=== PATIENT | male | born 1940 | race Caucasian/White ===

== ENCOUNTER 2018-02-27 18:23 | Emergency (ER) | payer MEDICARE, OTHER ==
[~2018-02-27] VITALS: Ht 177.8 cm; Wt 133.8 kg
[~2018-02-27 18:23] MED LIST: CLOP75 PO; GLIP5 PO; LORA10ER PO; METO25ER PO; RANI150 PO; [UNRECOGNIZED DRUG - REMARK]
[2018-02-27] MEDS ORDERED: POTA8 (18:37)
[2018-02-27] MEDS ORDERED: DOXA1 (18:37)
[2018-02-27] MEDS ORDERED: FURO100EL (18:37)
== END 2018-02-27 20:11 | disposition home or self-care (01) ==
LOC: ER 18:23
DX: S41.112A Laceration without foreign body of left upper arm, initial encounter (principal); S51.812A Laceration without foreign body of left forearm, initial encounter; W01.198A Fall on same level from slipping, tripping and stumbling with subsequent striking against other object, initial encounter; Z91.030 Bee allergy status; Z88.8 Allergy status to other drugs, medicaments and biological substances; Z79.899 Other long term (current) drug therapy; I10 Essential (primary) hypertension; E11.9 Type 2 diabetes mellitus without complications
CPT/HCPCS: 12002; 90471; 90714; 99282

== ENCOUNTER → 2018-05-10 | Outpatient (CLI) | payer MEDICARE, OTHER ==
[~2018-05-10] MED LIST changes: +ACET500 PO; +AMLO5 PO; +ASCO500 PO; +ATOR20 PO; +DOXA1; +DOXA4 PO; +FURO100EL; +FURO20 PO; +LOSA50 PO; +METO100ER PO; +POTA8; +SENN187 PO; +WARF2.5 PO; +WARF5 PO
[2018-05-10 15:37] LABS: Creatinine, Urine Random 77.8 mg/dL (27.00-270.00); Protein, Urine Random 12.7 mg/dL (0.0-11.9)
== END | disposition home or self-care (01) ==
LOC: LAB SHORT 12:42 → LAB 12:42
PROVIDERS: Internal Medicine
DX: N18.3 Chronic kidney disease, stage 3 (moderate) (principal)
CPT/HCPCS: 82570; 84156

== ENCOUNTER 2019-10-30 16:29 | Observation (INO) | payer MEDICARE, OTHER ==
[~2019-10-30] VITALS: Ht 177.8 cm; Wt 132.5 kg
[~2019-10-30 16:29] MED LIST changes: -WARF2.5 PO
[2019-10-30 17:03] LABS: BASOPHILS ABSOLUTE AUTO 0.01 K/mm3 (0.00-0.23); BASOPHILS PERCENT AUTO 0 % (0-2); EOSINOPHILS PERCENT AUTO 0 % (0-6); Hematocrit 40.8 % (37.0-53.0); Hemoglobin 13.1 g/dL (13.5-17.5); IMMATURE GRAN ABSOLUTE AUTO 0.04 K/mm3 (0.00-0.10); IMMATURE GRAN PERCENT AUTO 1 % (0-1); LYMPHOCYTES ABSOLUTE AUTO 0.71 K/mm3 (0.84-5.20); LYMPHOCYTES PERCENT AUTO 8 % (21-46); MONOCYTES ABSOLUTE AUTO 0.56 K/mm3 (0.16-1.47); MONOCYTES PERCENT AUTO 7 % (4-13); Mean Corpuscular HGB 32.3 pg (26.0-34.0); Mean Corpuscular HGB Conc 32.1 g/dL (31.5-36.5); Mean Corpuscular Volume 101 fL (80-100); Mean Platelet Volume 10.5 fL (9.1-12.4); NEUTROPHILS PERCENT AUTO 84 % (41-73); Platelet Count 202 K/mm3 (150-400); RDW Standard Deviation 48.4 fL (35.1-46.3); Red Blood Cell Count 4.05 M/mm3 (4.30-5.90); White Blood Cell Count 8.42 K/mm3 (4.00-11.30)
[2019-10-30 17:19] LABS: International Normalized Ratio 2.18; Prothrombin Time Results 22.3 Sec (9.7-11.5)
[2019-10-30 17:26] LABS: Albumin, Blood 3.2 g/dL (3.4-5.0); Albumin/Globulin Ratio 0.7 (0.8-1.8); Bilirubin, Total 0.7 mg/dL (0.1-1.0); Bun/Creatinine Ratio 17.3 (12.0-20.0); Calcium, Blood 9.7 mg/dL (8.5-10.1); Creatinine, Blood 1.97 mg/dL (0.60-1.20); Globulin, Blood 4.5 g/dL (2.2-4.0); Potassium, Blood 3.3 mmol/L (3.5-5.5); Total Protein, Blood 7.7 g/dL (6.4-8.2)
[2019-10-30] MEDS ORDERED: TOCO1000 (21:30)
--- NOTE | 2019-10-31 00:24 | NUR ---
79 YR OLD MALE ADMITTED TO FLOOR FROM THE ED WITH DX OF GI BLEED. WAS NPO, BUT MD ORDERED CLEAR LIQUIDS. NO NOTED EMESIS AT THIS TIME. ALERT AND ORINTED X 4. ORIENTED TO CALL LIGHT AND AGREES TO USE IT IF NEEDED.
[2019-10-31 02:20] LABS: Creatinine, Blood 1.74 mg/dL (0.60-1.20); Potassium, Blood 4.6 mmol/L (3.5-5.5)
--- NOTE | 2019-10-31 03:21 | NUR ---
HAD BEEN RESTING QUIETLY WITH FEW INTERRUPTIONS, AWAKE AT THIS TIME. STATED HE WAS DOING FINE. NO NOTED EMESIS. AFFECT SMILED.
[2019-10-31 03:51] LABS: Hematocrit 38.9 % (37.0-53.0); Hemoglobin 12.3 g/dL (13.5-17.5)
[2019-10-31 04:13] LABS: International Normalized Ratio 2.31; Prothrombin Time Results 23.6 Sec (9.7-11.5)
--- NOTE | 2019-10-31 06:16 | NUR ---
PT NOT VOIDING MUCH THIS SHIFT, BLADDER SCANNED NOTED 44 ML. ENCOURAGED TO DRINK MORE FLUIDS AND TO USE THE URINAL. STATED RATHER TERSELY, I WILL WHEN I NEED TO (USING THE URINAL).
[2019-10-31 09:32] LABS: Hematocrit 41.2 % (37.0-53.0); Hemoglobin 12.6 g/dL (13.5-17.5)
[2019-10-31] MEDS ORDERED: AZIT500 PO (10:33)
[2019-10-31] MEDS ORDERED: ALBU90OI INH (10:33)
[2019-10-31] MEDS ORDERED: Prednisone10 MG PO (10:34)
[2019-10-31] MEDS ORDERED: GLIP2.5ER PO (10:35)
[2019-10-31] MEDS ORDERED: BENZ100A PO (10:35)
--- NOTE | 2019-10-31 10:59 | NUR ---
DISCHARGE INSTRUCTIONS REVIEWED WITH PT. IV DC'D INTACT. APPT MADE WITH DR RODRIGUEZ FOR POSSIBLE UPPER ENDOSCOPY, [facility] TO CALL PT WITH A FOLLOW UP APPOINTMENT. RX FAXED TO [facility]. PT AWAITING RIDE HOME AT THIS TIME.
[2019-10-31 11:15] LABS: Adenovirus Not Detected (NOT DETECT); Bordetella pertussis Not Detected (NOT DETECT); Chlamydophila pneumoniae Not Detected (NOT DETECT); Coronavirus 229E Not Detected (NOT DETECT); Coronavirus HKU1 Not Detected (NOT DETECT); Coronavirus NL63 Not Detected (NOT DETECT); Coronavirus OC43 Not Detected (NOT DETECT); Human Metapneumovirus Not Detected (NOT DETECT); Human Rhinovirus/Enterovirus Not Detected (NOT DETECT); Influenza A Not Detected (NOT DETECT); Influenza A/2009-H1 Not Detected (NOT DETECT); Influenza A/H1 Not Detected (NOT DETECT); Influenza A/H3 Not Detected (NOT DETECT); Influenza B Not Detected (NOT DETECT); Mycoplasma pneumoniae Not Detected (NOT DETECT); Parainfluenza Virus 1 Not Detected (NOT DETECT); Parainfluenza Virus 2 Not Detected (NOT DETECT); Parainfluenza Virus 3 Not Detected (NOT DETECT); Parainfluenza Virus 4 Not Detected (NOT DETECT); Respiratory Syncytial Virus Detected (NOT DETECT)
--- NOTE | 2019-10-31 12:39 | NUR ---
PT DISCHARGED HOME WITH SPOUSE AT 1240.
== END 2019-10-31 12:40 | disposition home or self-care (01) ==
LOC: ER 16:29 → MEDS 16:30 → ENPENDDIS 10-31 10:17 → MEDS 10-31 12:40
PROVIDERS: Physician Assistant; ADMIT Internal Medicine
DX: K92.0 Hematemesis (principal); D68.32 Hemorrhagic disorder due to extrinsic circulating anticoagulants; T45.515A Adverse effect of anticoagulants, initial encounter; I48.91 Unspecified atrial fibrillation; J20.9 Acute bronchitis, unspecified; I12.9 Hypertensive chronic kidney disease with stage 1 through stage 4 chronic kidney disease, or unspecified chronic kidney disease; E11.22 Type 2 diabetes mellitus with diabetic chronic kidney disease; N18.3 Chronic kidney disease, stage 3 (moderate); Z88.8 Allergy status to other drugs, medicaments and biological substances; Z79.899 Other long term (current) drug therapy; Z91.038 Other insect allergy status; Z87.891 Personal history of nicotine dependence
CPT/HCPCS: 0099U; 36415; 71046; 80048; 80053; 82272; 82947; 83690; 84484; 85014; 85018; 85025; 85610; 85730; 86850; 86900; 86901; 93005; 93010; 96365; 96366; 96375; 99285-25; J2405; J2930; J3480; J7030

== ENCOUNTER 2020-02-03 16:21 | Inpatient (IN) | payer OTHER, MEDICARE ==
[~2020-02-03] VITALS: Ht 177.8 cm; Wt 140.2 kg
[~2020-02-03 16:21] MED LIST changes: +ALBU90OI INH; +AZIT500 PO; +BENZ100A PO; +GLIP2.5ER PO; +METO100 PO; -METO100ER PO; +Prednisone10 MG PO; +TOCO1000
[2020-02-03 16:45] LABS: BASOPHILS ABSOLUTE AUTO 0.03 K/mm3 (0.00-0.23); BASOPHILS PERCENT AUTO 0 % (0-2); EOSINOPHILS PERCENT AUTO 0 % (0-6); Hematocrit 33.1 % (37.0-53.0); Hemoglobin 10.1 g/dL (13.5-17.5); IMMATURE GRAN ABSOLUTE AUTO 0.22 K/mm3 (0.00-0.10); IMMATURE GRAN PERCENT AUTO 1 % (0-1); LYMPHOCYTES ABSOLUTE AUTO 0.52 K/mm3 (0.84-5.20); LYMPHOCYTES PERCENT AUTO 3 % (21-46); MONOCYTES ABSOLUTE AUTO 1.17 K/mm3 (0.16-1.47); MONOCYTES PERCENT AUTO 7 % (4-13); Mean Corpuscular HGB 30.4 pg (26.0-34.0); Mean Corpuscular HGB Conc 30.5 g/dL (31.5-36.5); Mean Corpuscular Volume 100 fL (80-100); Mean Platelet Volume 9.4 fL (9.1-12.4); NEUTROPHILS ABSOLUTE AUTO 15.85 K/mm3 (1.96-9.15); NEUTROPHILS PERCENT AUTO 89 % (41-73); Platelet Count 308 K/mm3 (150-400); RDW Coefficient Variation 13.4 % (11.7-14.2); RDW Standard Deviation 49.6 fL (35.1-46.3); Red Blood Cell Count 3.32 M/mm3 (4.30-5.90); White Blood Cell Count 17.79 K/mm3 (4.00-11.30)
[2020-02-03] MEDS ORDERED: ELIQUIS5 M2 PO (16:59)
[2020-02-03 17:01] LABS: International Normalized Ratio 1.28; Prothrombin Time Results 13.5 Sec (9.7-11.5)
[2020-02-03 17:08] LABS: Albumin, Blood 2.5 g/dL (3.4-5.0); Albumin/Globulin Ratio 0.6 (0.8-1.8); Bilirubin, Total 0.9 mg/dL (0.1-1.0); Bun/Creatinine Ratio 19.6 (12.0-20.0); Calcium, Blood 9.1 mg/dL (8.5-10.1); Creatinine, Blood 2.65 mg/dL (0.60-1.20); Globulin, Blood 4.5 g/dL (2.2-4.0); Potassium, Blood 4.9 mmol/L (3.5-5.5)
[2020-02-03] MEDS ORDERED: Cardura8 MG PO (17:21)
[2020-02-03] MEDS ORDERED: POTA10T PO (17:22)
[2020-02-03] MEDS ORDERED: GLIP5 PO (18:08)
[2020-02-03 18:34] LABS: Source, Urine Catheter
[2020-02-03 18:44] LABS: Bilirubin, Urine Neg (Neg); Blood, Urine 4+ (Neg); Glucose Qualitative, Urine Neg (Neg); Ketones, Urine Neg (Neg); Leukocyte Esterase, Urine 3+ (Neg); Nitrite, Urine Neg (Neg); Protein, Urine 2+ (Neg); Specific Gravity, Urine 1.015 (1.003-1.022); Urobilinogen, Urine NORM (Normal)
[2020-02-03 18:59] LABS: Appearance, Urine Cloudy (Clear); Color, Urine Yellow (P-Yellow)
[2020-02-03 19:00] LABS: Bacteria Mod /hpf; Red Blood Cells, Urine 0-2 /hpf (0-2); Squamous Epithelial Cells Not Seen /hpf (Few); White Blood Cells, Urine TNTC /hpf (0-5)
[2020-02-04 00:01] LABS: Hematocrit 32.4 % (37.0-53.0); Hemoglobin 10.1 g/dL (13.5-17.5); IMMATURE RETIC FRACTION 12.9 % (2.3-16.0); RETICULOCYTE COUNT PERCENT 1.69 % (0.50-2.50)
[2020-02-04 00:18] LABS: Percent Saturation 4.7 % (20.0-50.0)
[2020-02-04 00:21] LABS: Free Thyroxine 1.03 ng/dL (0.70-1.60)
[2020-02-04 00:24] LABS: Thyroid Stimulating Hormone 1.65 uIU/mL (0.360-4.800)
--- NOTE | 2020-02-04 05:17 | NUR ---
SHIFT SUMMARY PT SLEEPING IN ROOM COMFORTABLY AT THIS TIME. NO ACUTE CHANGES IN STATUS SINCE ARRIVAL. PT HAS SLEPT WELL SINCE ARRIVAL, WAKES EASILY TO VERBAL, BUT IS DROWSY WHILE AWAKE. RESP EVEN UNLABORED ON RA W/ SATS >92%. PT REPORTS SOME OCCASIONAL PAIN TO BUTTOCKS, WOUND NOTED AND PHOTOGRAPHED FOR CHART. PROTONIX GTT INFUSING IN PIV ALONG W/ NS. ATTEMPTED TO ESTABLISH SECONDARY IV ACCESS D/T MEDS NOT BEING ABLE TO INTERACT. UNAB LE TO ESTABLISH SECONDARY IV, AFTER MULTIPLE ATTEMPTS, POWERGLIDE ATTEMPED. UNABLE. WILL PASS ON TO DAY SHIFT RN ABOUT POSSIBLE NEED FOR PICC LINE FOR SECONDARY LINE. DENIES CP OR SOB. DENIED OTHER NEEDS. CALL LIGHT IN REACH.
[2020-02-04 05:32] LABS: Hematocrit 31.1 % (37.0-53.0); Hemoglobin 9.8 g/dL (13.5-17.5); Mean Corpuscular HGB 30.8 pg (26.0-34.0); Mean Corpuscular HGB Conc 31.5 g/dL (31.5-36.5); Mean Corpuscular Volume 98 fL (80-100); Mean Platelet Volume 9.6 fL (9.1-12.4); Platelet Count 265 K/mm3 (150-400); RDW Coefficient Variation 13.7 % (11.7-14.2); RDW Standard Deviation 49.9 fL (35.1-46.3); Red Blood Cell Count 3.18 M/mm3 (4.30-5.90); White Blood Cell Count 17.13 K/mm3 (4.00-11.30)
[2020-02-04 05:56] LABS: Albumin, Blood 2.8 g/dL (3.4-5.0); Albumin/Globulin Ratio 0.7 (0.8-1.8); Bilirubin, Total 0.9 mg/dL (0.1-1.0); Bun/Creatinine Ratio 17.8 (12.0-20.0); Calcium, Blood 9.1 mg/dL (8.5-10.1); Creatinine, Blood 3.03 mg/dL (0.60-1.20); Globulin, Blood 4.2 g/dL (2.2-4.0)
--- NOTE | 2020-02-04 10:05 | NUR ---
Echocardiogram completed.
[2020-02-04 12:23] LABS: Hematocrit 28.8 % (37.0-53.0); Hemoglobin 8.9 g/dL (13.5-17.5)
[2020-02-04 12:38] LABS: Source, Urine Catheter
[2020-02-04 12:48] LABS: Bilirubin, Urine Neg (Neg); Blood, Urine 5+ (Neg); Glucose Qualitative, Urine Neg (Neg); Ketones, Urine Neg (Neg); Leukocyte Esterase, Urine 3+ (Neg); Nitrite, Urine Neg (Neg); Protein, Urine 3+ (Neg); Specific Gravity, Urine 1.015 (1.003-1.022); Urobilinogen, Urine NORM (Normal)
[2020-02-04 12:55] LABS: Appearance, Urine Turbid (Clear); Color, Urine Yellow (P-Yellow)
[2020-02-04 12:57] LABS: White Blood Cells, Urine TNTC /hpf (0-5)
[2020-02-04 12:58] LABS: Bacteria Many /hpf; Squamous Epithelial Cells Rare /hpf (Few)
[2020-02-04 17:47] LABS: Hematocrit 32.7 % (37.0-53.0); Hemoglobin 10.2 g/dL (13.5-17.5)
--- NOTE | 2020-02-04 17:50 | NUR ---
SHIFT SUMMARY PT ALERT AND ORIENTED. PT DROWSY MOST OF SHIFT, BUT AWAKES EASILY. VS STABLE. HR AFIB 90'S. BP STABLE. PT HAS BEEN AFEBRILE THIS AFTERNOON. IV SALINE LOCKED. PT REPOSITIONING HIMSELF IN BED AND WITH HELP NEEDED. MELARA CATHETER PLACED THIS SHIFT DUE TO RETENTION. PT HAD 2 SMALL BM THIS SHIFT THAT WAS INCONTINENT. STOOL WAS BROWN. PT TOLERATING CLEAR LIQUIDS. MEPILEX TO COCCYX IN PLACE. WILL CONTINUE TO MONITOR AND REPORT TO ONCOMING RN. CALL LIGHT IN REACH.
[2020-02-05 04:32] LABS: Hematocrit 26.4 % (37.0-53.0); Hemoglobin 8.3 g/dL (13.5-17.5); Mean Corpuscular HGB 31.1 pg (26.0-34.0); Mean Corpuscular HGB Conc 31.4 g/dL (31.5-36.5); Mean Corpuscular Volume 99 fL (80-100); Platelet Count 222 K/mm3 (150-400); RDW Coefficient Variation 13.9 % (11.7-14.2); RDW Standard Deviation 49.9 fL (35.1-46.3); Red Blood Cell Count 2.67 M/mm3 (4.30-5.90)
[2020-02-05 04:52] LABS: Albumin, Blood 2.1 g/dL (3.4-5.0); Albumin/Globulin Ratio 0.5 (0.8-1.8); Bilirubin, Total 0.5 mg/dL (0.1-1.0); Bun/Creatinine Ratio 18.8 (12.0-20.0); Calcium, Blood 8.3 mg/dL (8.5-10.1); Creatinine, Blood 3.2 mg/dL (0.60-1.20); Potassium, Blood 4.5 mmol/L (3.5-5.5); Total Protein, Blood 6.1 g/dL (6.4-8.2)
[2020-02-05 05:35] LABS: BAND PERCENT MAN 12 % (0-8); BASOPHILS ABSOLUTE MAN 0.13 K/mm3 (0.00-0.23); BASOPHILS PERCENT MAN 1 % (0-2); EOSINOPHILS PERCENT MAN 0 % (0-6); LYMPHOCYTES PERCENT MAN 3 % (21-46); MONOCYTES ABSOLUTE MAN 0.27 K/mm3 (0.16-1.47); MONOCYTES PERCENT MAN 2 % (4-13); NEUTROPHILS ABSOLUTE MAN 12.69 K/mm3 (1.96-9.15); SEG NEUTROPHILS PERCENT MAN 82 % (41-73); TOTAL CELLS COUNTED 100
--- NOTE | 2020-02-05 06:14 | NUR ---
SHIFT SUMMARY PT A&O; LETHARGIC; COMPLIANT W/ CARE; PO FLUIDS BROUGHT PRN; TYLENOL GIVEN 1X FOR TEMP OFF 99; VSS; AFIB NOTED ON TELE; HR STEADILY INCREASED T/O SHIFT; O2 SATS >93 ON RA; PT INCONTINENT; ATTENDS IN PLACE; MIPILEX CHANGED AND WOUND ASSESSED; MELARA DRAINING OZZIE URINE; PYURIA & ODOR NOTED; BLE 2+ EDEMA W/ REDNESS AND SMALL BLISTERS NOTED; CALL LIGHT IN REACH; BED IN LOWEST POSITION; WILL CONTINUE TO MONITOR CLOSELY UNTIL HAND OFF TO DAY SHIFT RN.
--- NOTE | 2020-02-05 14:52 | NUR ---
UPDATE PT ALERT AND ORIENTED. VS STABLE. O2 SATS REMAIN ABOVE 90% ON RA. HR AFIB 90-100'S. PT DENIES ANY PAIN. DR. BLACKMON IN WITH PLANS TO TRANSFER TO MEDICAL FLOOR WITH NO TELEMETRY. PT TAKEN UP BY BED.
--- NOTE | 2020-02-05 18:17 | NUR ---
RECEIVED TO ROOM 341 AT 1520 IN THE BED. HE IS SLEEPY BUT AROUSABLE. HIS RESPIRATIONS ARE SLIGHTLY LABORED. HE IS A VERY LARGE MAN WITH EDEMA. IV ANTIBIOTIC INFUSING ON ARRIVAL FINISHED. HE HAS WORKED WITH OT SINCE ARRIVAL. HIS DINNER IS LATE. HE IS CURRENTLY TALKING TO HIS FAMILY ON THE PHONE. HE WAS UP IN THE CHAIR IN PCU EARLIER TODAY. SARITHA TAFOYA. HE IS FRUSTRATED WITH HOW HARD ALL HIS ADL'S ARE BUT HAS A GOOD ATTITUDE.
[2020-02-06 04:57] LABS: BASOPHILS ABSOLUTE AUTO 0.01 K/mm3 (0.00-0.23); BASOPHILS PERCENT AUTO 0 % (0-2); EOSINOPHILS ABSOLUTE AUTO 0.14 K/mm3 (0.00-0.68); EOSINOPHILS PERCENT AUTO 1 % (0-6); Hematocrit 26.6 % (37.0-53.0); Hemoglobin 8.2 g/dL (13.5-17.5); IMMATURE GRAN ABSOLUTE AUTO 0.06 K/mm3 (0.00-0.10); IMMATURE GRAN PERCENT AUTO 1 % (0-1); LYMPHOCYTES ABSOLUTE AUTO 0.84 K/mm3 (0.84-5.20); LYMPHOCYTES PERCENT AUTO 7 % (21-46); MONOCYTES ABSOLUTE AUTO 0.95 K/mm3 (0.16-1.47); MONOCYTES PERCENT AUTO 8 % (4-13); Mean Corpuscular HGB 30.8 pg (26.0-34.0); Mean Corpuscular HGB Conc 30.8 g/dL (31.5-36.5); Mean Corpuscular Volume 100 fL (80-100); Mean Platelet Volume 10.1 fL (9.1-12.4); NEUTROPHILS ABSOLUTE AUTO 9.98 K/mm3 (1.96-9.15); NEUTROPHILS PERCENT AUTO 83 % (41-73); Platelet Count 213 K/mm3 (150-400); RDW Standard Deviation 51.5 fL (35.1-46.3); Red Blood Cell Count 2.66 M/mm3 (4.30-5.90); White Blood Cell Count 11.98 K/mm3 (4.00-11.30)
[2020-02-06 05:14] LABS: Albumin, Blood 2.1 g/dL (3.4-5.0); Albumin/Globulin Ratio 0.5 (0.8-1.8); Bilirubin, Total 0.5 mg/dL (0.1-1.0); Bun/Creatinine Ratio 20.7 (12.0-20.0); Calcium, Blood 8.2 mg/dL (8.5-10.1); Potassium, Blood 4.2 mmol/L (3.5-5.5); Total Protein, Blood 6.1 g/dL (6.4-8.2)
--- NOTE | 2020-02-06 05:28 | NUR ---
SHIFT SUMMARY AOX3, CONFUSED @TIMES & WILL STATE "I DON'T KNOW" WHEN UNABLE TO ANSWER QUESTIONS. FOLLOWS DIRECTIONS. HAS BUE SHAKES/TREMORS & STATES THEY ARE NEW. DENIES PAIN, N/V OR DYSPNEA. MELARA IS PATENT & PT HAD 1300ML OUTPUT, BLADDER SCAN SHOWED 263ML IN BLADDER. ABD DISTENDED W/ACTIVE BT. TOLERATING DIET. CBG @HS WAS 139. DRESSING ON RIGHT BUTTOCKS WOUND WAS CHANGED. CALL LIGHT IN REACH. WCTM.
--- NOTE | 2020-02-06 13:46 | NUR ---
HE IS BACK IN BED NOW WITH EACH LEG ELEVATED ON 2 PILLOWS. WE STARTED THAT THIS AM. SCD'S WERE REMOVED FOR A FEW HRS D/T MAKING BIG CREASES IN THE PITTING EDEMA BUT NOW ARE BACK ON FOR AWHILE. HE IS MORE ALERT TODAY AND HAS VERY PLEASANT AND APPROPRIATE. HE SAT UP IN A RECLINER CHAIR FOR A COUPLE OF HRS. HE HAD A LG FORMED BM ON THE BSC. THE R BUTTOCK FOAM DRESSING STAYED CD&I. HE IS DIURISING WELL THROUGH MELARA CATHETER. NO COMPLAINTS.
--- NOTE | 2020-02-06 13:50 | NUR ---
KRISTINE HE ASKED FOR HIS WALLET FROM HIS [employer]ONGINGS BAG. HE AND I CONFIRMED TOGETHER THAT HE HAD 160.00 DOLLARS IN 1 SECTION AND 8 DOLLARS IN ANOTHER. HE ARRANGED FOR HIS TO PICK IT UP OUT FRONT. SHE HAS PICKED IT UP. I TOOK IT DOWN TO HER AT THE E.R. ENTRANCE.
--- NOTE | 2020-02-06 16:33 | NUR ---
Per oswaldo, I met with Mr. Ramsay to offer information regarding advanced care planning. He was not interested, but took an advanced directive packet regardless. I will remain available.
--- NOTE | 2020-02-06 18:01 | NUR ---
HE IS IN THE CHAIR FOR THE 2ND TIME TODAY. HE TRANSFERS WITH 2 ASSIST. HE HAS A DIFFICULT TIME GETTING UP TO A DANGLE BUT THEN STANDS WELL AND TAKES STEPS WELL. HE HAD 3 LARGE UNFORMED AND LIQUID DARK BROWN STOOLS TODAY. R BUTTOCK PATCH REMAINED CLEAN. GOOD DIURESIS. WHEN IN BED HE HAS HAD EACH LEG UP ON 2 PILLOWS. HE HAS LESS EDEMA NOW THAN THIS MORNING. SCD'S ARE USED INTERMITTENTLY D/T SEVERE EDEMA. HE IS VERY PLEASANT, A&O X3. HE HAD ME DELIVER HIS WALLET TO HIS DOWNSTAIRS TODAY AT THE DOOR. NO FEVER THOUGH HE SWEATED A LOT EARLY THIS AM.
[2020-02-07 04:51] LABS: BASOPHILS ABSOLUTE AUTO 0.01 K/mm3 (0.00-0.23); BASOPHILS PERCENT AUTO 0 % (0-2); EOSINOPHILS ABSOLUTE AUTO 0.25 K/mm3 (0.00-0.68); EOSINOPHILS PERCENT AUTO 2 % (0-6); Hemoglobin 8.2 g/dL (13.5-17.5); IMMATURE GRAN ABSOLUTE AUTO 0.06 K/mm3 (0.00-0.10); IMMATURE GRAN PERCENT AUTO 1 % (0-1); LYMPHOCYTES ABSOLUTE AUTO 0.84 K/mm3 (0.84-5.20); LYMPHOCYTES PERCENT AUTO 8 % (21-46); MONOCYTES ABSOLUTE AUTO 0.97 K/mm3 (0.16-1.47); MONOCYTES PERCENT AUTO 9 % (4-13); Mean Corpuscular HGB 30.7 pg (26.0-34.0); Mean Corpuscular HGB Conc 31.5 g/dL (31.5-36.5); Mean Platelet Volume 10.1 fL (9.1-12.4); NEUTROPHILS ABSOLUTE AUTO 8.64 K/mm3 (1.96-9.15); NEUTROPHILS PERCENT AUTO 80 % (41-73); Platelet Count 236 K/mm3 (150-400); RDW Standard Deviation 49.8 fL (35.1-46.3); Red Blood Cell Count 2.67 M/mm3 (4.30-5.90); White Blood Cell Count 10.77 K/mm3 (4.00-11.30)
[2020-02-07 04:52] LABS: Mean Corpuscular Volume 97 fL (80-100)
[2020-02-07 05:13] LABS: Albumin, Blood 2.3 g/dL (3.4-5.0); Albumin/Globulin Ratio 0.6 (0.8-1.8); Bilirubin, Total 0.6 mg/dL (0.1-1.0); Bun/Creatinine Ratio 21.7 (12.0-20.0); Calcium, Blood 8.3 mg/dL (8.5-10.1); Creatinine, Blood 2.77 mg/dL (0.60-1.20); Globulin, Blood 3.7 g/dL (2.2-4.0); Potassium, Blood 3.8 mmol/L (3.5-5.5)
--- NOTE | 2020-02-07 05:19 | NUR ---
SHIFT SUMMARY NO ACUTE CHANGES THIS SHIFT. AOX3. VSS. DENIES PAIN, NAUSEA OR DYSPNEA. BLE EDEMA APPEARS BETTER TONIGHT THEN PREVIOUS NIGHT +1-2, ELEVATED BLE ON PILLOWS WHILE IN BED. SCDS ON INTERMITTENTLY, TAKEN OFF FOR COMFORT PER PT REQUEST. BANDAGE ON WOUND CHANGE THIS AM. SARITHA PATENT & DRAINING. CALL LIGHT IN REACH.
--- NOTE | 2020-02-07 15:44 | NUR ---
PATIENT HAS HAD AN UNEVENTFUL DAY. PULSE AND RR ELEVATED; PATIENT ALSO HAD A TEMP OF 99.0 WITHIN THE PAST 24HRS SO WAS NOT ABLE TO DISCHARGE TO A SNF TODAY PLANNED. DENIES PAIN AND DISCOMFORT. NO ACUTE CHANGES TO REPORT OF AT THIS TIME.
--- NOTE | 2020-02-08 05:21 | NUR ---
SHIFT SUMMARY: 79 Y/O OBESE MALE RESTED COMFORTABLY ALL SHIFT; MELARA DRAINING CLEAR YELLOW FLUID; +4 PITTING EDEMA TO LOWER EXTREMITIES NOTED WHILE ELEVATED ON TWO PILLOWS; DENIES PAIN OR NAUSEA; BED LOW POSITION WITH CALL LIGHT AT SIDE.
--- NOTE | 2020-02-08 13:56 | NUR ---
PATIENT HAS BEEN SLEEPING THE MAJORITY OF THE DAY. BLOOD CULTURES ORDERED AND WERE DRAWN ON PATIENT. PATIENT REMAINS TACHYCARDIC BUT ASYMPTOMMATIC; ALL OTHER VITALS STABLE AND WNL. DENIES PAIN AND DISCOMFORT. PATIENT ASLEEP IN ROOM AT THIS TIME. WILL CONTINUE TO MONITOR AND PROVIDE CARE NEEDED.
[2020-02-09 05:19] LABS: Hematocrit 28.3 % (37.0-53.0); Hemoglobin 8.7 g/dL (13.5-17.5); Mean Corpuscular HGB 30.4 pg (26.0-34.0); Mean Corpuscular HGB Conc 30.7 g/dL (31.5-36.5); Mean Corpuscular Volume 99 fL (80-100); Mean Platelet Volume 9.7 fL (9.1-12.4); Platelet Count 299 K/mm3 (150-400); RDW Coefficient Variation 14.2 % (11.7-14.2); RDW Standard Deviation 52.3 fL (35.1-46.3); Red Blood Cell Count 2.86 M/mm3 (4.30-5.90)
[2020-02-09 05:32] LABS: Anion Gap 9 mmol/L (6-16); Blood Urea Nitrogen 53 mg/dL (8-24); Bun/Creatinine Ratio 22.9 (12.0-20.0); CO2, Blood 23 mmol/L (21-32); Calcium, Blood 8.5 mg/dL (8.5-10.1); Chloride, Blood 108 mmol/L (98-108); Creatinine, Blood 2.31 mg/dL (0.60-1.20); Glomerular Filtration Rate 29 (60-); Glucose, Blood 149 mg/dL (70-99); Phosphorus, Blood 3.2 mg/dL (2.5-4.9); Potassium, Blood 3.9 mmol/L (3.5-5.5); Sodium, Blood 140 mmol/L (136-145)
--- NOTE | 2020-02-09 06:30 | NUR ---
SHIFT SUMMARY: 79 Y/O OBESE MALE RESTED COMFORTABLY ALL SHIFT; PT INCONTINENT LARGE AMOUNT URINE AND STOOL X 1 THIS SHIFT; CLEANSED UP AND FRESH LINEN AND GOWN APPLIED; DENIES PAIN OR NAUSEA; ALERT AND ORIENTED X 4; HAPPY AND COOPERATIVE; BED LOW POSITION WITH CALL LIGHT AT SIDE.
--- NOTE | 2020-02-09 08:06 | NUR ---
STRAIGHT CATH ORDER PT DID NOT VOID OVERNIGHT. AT SHIFT CHANGE PT HAD INCONT STOOL AND POSSIBLY SOME URINE. PT UNABLE TO VOID ANYMORE. BLADDER SCAN REVEALED 553. DR. JEFFREY NOTIFIED & ONE TIME STRAIGHT CATH ORDER GIVE.
[2020-02-09] MEDS ORDERED: TUMS500 MG PO (10:21)
[2020-02-09] MEDS ORDERED: CIPR500 PO (10:21)
[2020-02-09] MEDS ORDERED: FURO40 PO (10:23)
[2020-02-09] MEDS ORDERED: VISBIOME 112.51 EACH PO (10:24)
[2020-02-09] MEDS ORDERED: PANT20 PO (10:25)
[2020-02-09] MEDS ORDERED: TAMS.4ER PO (10:27)
--- NOTE | 2020-02-09 11:47 | NUR ---
ATTEMPTED TO CALL REPORT. UV NURSE TO CALL THIS RN BACK.
--- NOTE | 2020-02-09 12:37 | NUR ---
PT DISCHARGED. PT DISCHARGED AT 1235. NO ACUTE CHANGES IN ASSESSMENT AT THIS TIME. REPORT CALLED TO NURSE, ZACK AT [facility]. THIS RN RELAYED TO BLADDER SCAN PT AFTER ARRIVAL. PT CHOSE TO EAT LUNCH INSTEAD OF HAVING HIS BLADDER SCANNED. STATING "HE DOESN'T HAVE TO GO RIGHT NOW". PT WHEELED OUT BY [employer]. BELONGINGS SENT WITH PT.
== END 2020-02-09 12:37 | DRG 872 ==
LOC: ER 16:21 → PCU 20:57 → MEDS 20:57 → ICUE 21:00 → ICUW 21:13 → PCU 21:19 → MEDS 02-05 15:17 → ENPENDDIS 02-09 10:00 → MEDS 02-09 12:37
PROVIDERS: Internal Medicine; Physician Assistant; ADMIT Internal Medicine
DX: A41.81 Sepsis due to Enterococcus (principal); E87.2 Acidosis; N39.0 Urinary tract infection, site not specified; Z68.41 Body mass index [BMI] 40.0-44.9, adult; K92.0 Hematemesis; Z79.01 Long term (current) use of anticoagulants; N18.3 Chronic kidney disease, stage 3 (moderate); I25.10 Atherosclerotic heart disease of native coronary artery without angina pectoris; Z87.891 Personal history of nicotine dependence; E11.22 Type 2 diabetes mellitus with diabetic chronic kidney disease; I12.9 Hypertensive chronic kidney disease with stage 1 through stage 4 chronic kidney disease, or unspecified chronic kidney disease; I35.2 Nonrheumatic aortic (valve) stenosis with insufficiency; M19.90 Unspecified osteoarthritis, unspecified site; E88.09 Other disorders of plasma-protein metabolism, not elsewhere classified; Z85.05 Personal history of malignant neoplasm of liver; E66.01 Morbid (severe) obesity due to excess calories; Z86.711 Personal history of pulmonary embolism; L89.152 Pressure ulcer of sacral region, stage 2; K21.9 Gastro-esophageal reflux disease without esophagitis; I48.91 Unspecified atrial fibrillation; N40.1 Benign prostatic hyperplasia with lower urinary tract symptoms; N13.9 Obstructive and reflux uropathy, unspecified; L72.0 Epidermal cyst; Z79.84 Long term (current) use of oral hypoglycemic drugs; I50.9 Heart failure, unspecified
CPT/HCPCS: 36415; 51702; 71045; 80053; 80069; 81001; 82272; 82728; 82947; 83540; 83550; 83605; 83690; 83880; 84439; 84443; 84484; 85014; 85018; 85025; 85027; 85045; 85610; 86850; 86900; 86901; 87040; 87077; 87086; 87186; 93005; 93010; 93306; 93970; 96365; 96375; 97110; 97163; 97166; 97530; 97535; 99285-25; A9270; A9270-GY; C1751; C9113; J0696; J0881; J1940; J2405; J7030; J7050; P9046

== ENCOUNTER → 2020-07-27 | Outpatient (CLI) | payer MEDICARE, OTHER ==
[~2020-07-27] MED LIST changes: +CIPR500 PO; +Cardura8 MG PO; +ELIQUIS5 M2 PO; +FURO40 PO; +PANT20 PO; +POTA10T PO; +TAMS.4ER PO; +TUMS500 MG PO; +VISBIOME 112.51 EACH PO
== END | disposition home or self-care (01) ==
LOC: LAB SHORT 14:23 → OLS 14:23 → LAB FUT 04-29 14:45
DX: N18.4 Chronic kidney disease, stage 4 (severe) (principal)
CPT/HCPCS: 82570; 84156

== ENCOUNTER 2021-07-13 15:21 | Emergency (ER) | payer MEDICARE, OTHER ==
[~2021-07-13] VITALS: Ht 175.3 cm; Wt 133.8 kg
== END 2021-07-13 17:39 | disposition home or self-care (01) ==
LOC: ER 15:21
DX: S01.81XA Laceration without foreign body of other part of head, initial encounter (principal); S03.2XXA Dislocation of tooth, initial encounter; Z23 Encounter for immunization; I48.91 Unspecified atrial fibrillation; I12.9 Hypertensive chronic kidney disease with stage 1 through stage 4 chronic kidney disease, or unspecified chronic kidney disease; N18.30 Chronic kidney disease, stage 3 unspecified; E11.9 Type 2 diabetes mellitus without complications; I25.10 Atherosclerotic heart disease of native coronary artery without angina pectoris; Z91.030 Bee allergy status; Z88.8 Allergy status to other drugs, medicaments and biological substances; Z79.899 Other long term (current) drug therapy; Z79.84 Long term (current) use of oral hypoglycemic drugs; Z79.01 Long term (current) use of anticoagulants; W18.30XA Fall on same level, unspecified, initial encounter
CPT/HCPCS: 12013; 70450; 72125; 90471; 90714; 99283-25

== ENCOUNTER → 2021-12-05 | Outpatient (CLI) | payer MEDICARE, OTHER ==
[2021-12-05 11:55] LABS: Source, Urine Clean Catch
[2021-12-05 21:50] LABS: Bilirubin, Urine Neg (Neg); Blood, Urine 3+ (Neg); Glucose Qualitative, Urine Neg (Neg); Ketones, Urine Neg (Neg); Leukocyte Esterase, Urine Neg (Neg); Nitrite, Urine Neg (Neg); Protein, Urine 1+ (Neg); Urobilinogen, Urine NORM (Normal)
[2021-12-05 21:52] LABS: Appearance, Urine Hazy (Clear); Bacteria Few /hpf; Color, Urine Yellow (P-Yellow); Squamous Epithelial Cells Mod /hpf (Few); Uric Acid Crystals Mod /hpf; White Blood Cells, Urine Not Seen /hpf (0-5)
[2021-12-05 22:15] LABS: Creatinine, Urine Random 86.8 mg/dL (27.00-270.00); Protein, Urine Random 21.5 mg/dL (0.0-11.9); Protein/Creat Ratio, Ur Random 0.2
== END ==
LOC: LAB SHORT 11:47
PROVIDERS: Internal Medicine Nephrology
DX: N18.4 Chronic kidney disease, stage 4 (severe) (principal)
CPT/HCPCS: 81001; 82570; 84156

== ENCOUNTER 2022-04-15 08:16 | Day surgery (SDC) | payer MEDICARE, OTHER ==
[~2022-04-15] VITALS: Ht 175.3 cm; Wt 140.0 kg
[2022-04-15] MEDS ORDERED: LOSA50 PO (08:44)
[2022-04-15] MEDS ORDERED: CELE100 PO (08:44)
[2022-04-15] MEDS ORDERED: POTA10T PO (08:45)
--- NOTE | 2022-04-15 15:25 | NUR ---
PT UP AND DRESSED WITH ASSISTANCE FROM . DISCHARGE REVIEWED WITH PT AND , BOTH VERBALIZE UNDERSTANDING OF INSTRUCTIONS. SALINE LOCK REMOVED WITH CATHETER INTACT. TR BAND REMOVED AND CLOTH DOT PLACED. ARM BOARD ON AND PT INSTRUCTED TO STAY ON FOR 2 DAYS. PT PLACED IN ARM SLING REMINDER NOT TO USE R ARM. PT TO PRIVATE VEHICLE PER W/C WITH ONE STAFF,
== END 2022-04-15 15:51 | disposition home or self-care (01) ==
LOC: MHTC 08:16
DX: Z01.810 Encounter for preprocedural cardiovascular examination (principal); I35.0 Nonrheumatic aortic (valve) stenosis; I25.10 Atherosclerotic heart disease of native coronary artery without angina pectoris; E78.5 Hyperlipidemia, unspecified; I48.91 Unspecified atrial fibrillation; I12.9 Hypertensive chronic kidney disease with stage 1 through stage 4 chronic kidney disease, or unspecified chronic kidney disease; N18.9 Chronic kidney disease, unspecified; E11.22 Type 2 diabetes mellitus with diabetic chronic kidney disease; Z86.718 Personal history of other venous thrombosis and embolism; Z86.711 Personal history of pulmonary embolism; Z79.01 Long term (current) use of anticoagulants; Z79.899 Other long term (current) drug therapy
CPT/HCPCS: 76937; 93454; 99152; 99153; C1769; C1887; C1894; J1644; J2250; J3010; J7030; J7040; Q9967

== ENCOUNTER 2022-05-09 00:07 | Inpatient (IN) | payer MEDICARE, OTHER ==
[~2022-05-09] VITALS: Ht 175.3 cm; Wt 138.9 kg
[~2022-05-09 00:07] MED LIST changes: +CELE100 PO
[2022-05-09 02:55] LABS: BASOPHILS ABSOLUTE AUTO 0.02 K/mm3 (0.00-0.23); BASOPHILS PERCENT AUTO 0 % (0-2); EOSINOPHILS ABSOLUTE AUTO 0.04 K/mm3 (0.00-0.68); EOSINOPHILS PERCENT AUTO 0 % (0-6); Hemoglobin 12.3 g/dL (13.5-17.5); IMMATURE GRAN ABSOLUTE AUTO 0.08 K/mm3 (0.00-0.10); IMMATURE GRAN PERCENT AUTO 1 % (0-1); LYMPHOCYTES ABSOLUTE AUTO 0.73 K/mm3 (0.84-5.20); LYMPHOCYTES PERCENT AUTO 6 % (21-46); MONOCYTES ABSOLUTE AUTO 0.95 K/mm3 (0.16-1.47); MONOCYTES PERCENT AUTO 7 % (4-13); Mean Corpuscular HGB 33.2 pg (26.0-34.0); Mean Corpuscular HGB Conc 32.4 g/dL (31.5-36.5); Mean Corpuscular Volume 103 fL (80-100); Mean Platelet Volume 11.1 fL (9.1-12.4); NEUTROPHILS ABSOLUTE AUTO 11.43 K/mm3 (1.96-9.15); NEUTROPHILS PERCENT AUTO 86 % (41-73); Platelet Count 177 K/mm3 (150-400); RDW Coefficient Variation 12.8 % (11.7-14.2); RDW Standard Deviation 48.2 fL (35.1-46.3); White Blood Cell Count 13.25 K/mm3 (4.00-11.30)
[2022-05-09 03:54] LABS: Albumin, Blood 2.5 g/dL (3.4-5.0); Albumin/Globulin Ratio 0.7 (0.8-1.8); Bilirubin, Total 0.9 mg/dL (0.1-1.0); Bun/Creatinine Ratio 20.4 (12.0-20.0); Calcium, Blood 8.1 mg/dL (8.5-10.1); Creatinine, Blood 2.26 mg/dL (0.60-1.20); Globulin, Blood 3.8 g/dL (2.2-4.0); Potassium, Blood 5.8 mmol/L (3.5-5.5); Total Protein, Blood 6.3 g/dL (6.4-8.2)
[2022-05-09 09:35] LABS: SARS-Cov-2 (COVID-19) PCR, MMC NEGATIVE (NEGATIVE)
[2022-05-09 13:36] LABS: Source, Urine Clean Catch
[2022-05-09 13:39] LABS: Appearance, Urine Cloudy (Clear); Bilirubin, Urine Neg (Neg); Blood, Urine 4+ (Neg); Color, Urine Yellow (P-Yellow); Glucose Qualitative, Urine Neg (Neg); Ketones, Urine Neg (Neg); Leukocyte Esterase, Urine 3+ (Neg); Nitrite, Urine Neg (Neg); Protein, Urine Neg (Neg); Specific Gravity, Urine 1.015 (1.003-1.022); Urobilinogen, Urine NORM (Normal)
[2022-05-09 13:45] LABS: Bacteria Few /hpf; Squamous Epithelial Cells Few /hpf (Few); White Blood Cells, Urine TNTC /hpf (0-5)
--- NOTE | 2022-05-09 17:27 | NUR ---
SHIFT SUMMARY PT REMAINS ALERT AND ORIENTED, BUT LETHARGIC AT TIMES. PT DENIES ANY PAIN. O2 SATS >90% ON 2L NC. PT ABLE TO REPOSITION HIMSELF IN BED. PT TENDS TO LEAN TO THE LEFT IN BED, BUT PER THE PT HAS "DONE THAT FOR YEARS". PT ABLE TO VOID USING THE URINAL. WILL CONTINUE TO MONTIOR AND REPORT TO ONCOMING RN
--- NOTE | 2022-05-09 20:54 | NUR ---
ASSUMED CARE PT ALERT AND ORIENTED X4. HE IS [place]. VITALS ARE STABLE AND PT'S SATS ARE ABOVE 92% ON 2L NC. PT DENIES CHEST PAIN OR SOB. PT DENIES PAIN. CALL LIGHT IS WITHIN REACH.
[2022-05-10 04:04] LABS: BASOPHILS ABSOLUTE AUTO 0.01 K/mm3 (0.00-0.23); BASOPHILS PERCENT AUTO 0 % (0-2); EOSINOPHILS ABSOLUTE AUTO 0.03 K/mm3 (0.00-0.68); EOSINOPHILS PERCENT AUTO 0 % (0-6); Hematocrit 36.5 % (37.0-53.0); Hemoglobin 11.5 g/dL (13.5-17.5); IMMATURE GRAN ABSOLUTE AUTO 0.03 K/mm3 (0.00-0.10); IMMATURE GRAN PERCENT AUTO 0 % (0-1); LYMPHOCYTES ABSOLUTE AUTO 0.77 K/mm3 (0.84-5.20); LYMPHOCYTES PERCENT AUTO 8 % (21-46); MONOCYTES ABSOLUTE AUTO 0.95 K/mm3 (0.16-1.47); MONOCYTES PERCENT AUTO 10 % (4-13); Mean Corpuscular HGB 33.5 pg (26.0-34.0); Mean Corpuscular HGB Conc 31.5 g/dL (31.5-36.5); Mean Corpuscular Volume 106 fL (80-100); Mean Platelet Volume 10.6 fL (9.1-12.4); NEUTROPHILS ABSOLUTE AUTO 7.45 K/mm3 (1.96-9.15); NEUTROPHILS PERCENT AUTO 81 % (41-73); Platelet Count 147 K/mm3 (150-400); RDW Coefficient Variation 12.9 % (11.7-14.2); RDW Standard Deviation 50.4 fL (35.1-46.3); Red Blood Cell Count 3.43 M/mm3 (4.30-5.90); White Blood Cell Count 9.24 K/mm3 (4.00-11.30)
[2022-05-10 04:22] LABS: Albumin, Blood 2.5 g/dL (3.4-5.0); Albumin/Globulin Ratio 0.6 (0.8-1.8); Bilirubin, Total 0.5 mg/dL (0.1-1.0); Bun/Creatinine Ratio 19.3 (12.0-20.0); Calcium, Blood 8.2 mg/dL (8.5-10.1); Creatinine, Blood 2.75 mg/dL (0.60-1.20); Globulin, Blood 3.9 g/dL (2.2-4.0); Potassium, Blood 4.6 mmol/L (3.5-5.5); Total Protein, Blood 6.4 g/dL (6.4-8.2)
--- NOTE | 2022-05-10 06:58 | NUR ---
CALLED DR ROSALES REGARDING GRAM POSITIVE COCCI IN CLUSTERS CULTER RESULTS. TO PUT IN ORDERS FOR NAZARIO.
--- NOTE | 2022-05-10 07:23 | NUR ---
SHIFT SUMMARY PT IS ALERT AND ORIENTED X4. HE IS VERY [place]. VITALS HAVE BEEN STABLE T/O THE NIGHT AND HAS BEEN ON 2L NC WITH SATS ABOVE 92%. PT DENIES CHEST PAIN OR SOB. HE IS ABLE TO SIT ON SIDE OF THE BED TO USE THE URINAL. CUTLURES THIS AM WERE GRAM POSITIVE WITH COCCI IN CLUSTERS, WHICH WAS CALLED INTO DR ROSALES. GEORGETTE ORDERED WERE ENTERED BY . CALL LIGHT IS WITHIN REACH.
--- NOTE | 2022-05-10 16:48 | NUR ---
SHIFT SUMMARY PT REMAINS ALERT AND ORIENTED. VS STABLE. O2 SATS HAVE REMAINED ABOVE 90% ON 2L NC. NS INFUSING PER ORDERS. PT ABLE TO STAND AND AMBULATE TO CHAIR WITH MINIMAL ASSITANCE. NO COMPLAINTS OF PAIN THIS SHIFT. WILL CONTINUE TO MONITOR AND REPORT TO ONCOMING RN
[2022-05-11 04:39] LABS: BASOPHILS ABSOLUTE AUTO 0.01 K/mm3 (0.00-0.23); BASOPHILS PERCENT AUTO 0 % (0-2); EOSINOPHILS ABSOLUTE AUTO 0.23 K/mm3 (0.00-0.68); EOSINOPHILS PERCENT AUTO 3 % (0-6); Hematocrit 35.5 % (37.0-53.0); IMMATURE GRAN ABSOLUTE AUTO 0.06 K/mm3 (0.00-0.10); IMMATURE GRAN PERCENT AUTO 1 % (0-1); LYMPHOCYTES ABSOLUTE AUTO 1.03 K/mm3 (0.84-5.20); LYMPHOCYTES PERCENT AUTO 13 % (21-46); MONOCYTES PERCENT AUTO 10 % (4-13); Mean Corpuscular HGB 33.2 pg (26.0-34.0); Mean Corpuscular Volume 107 fL (80-100); Mean Platelet Volume 10.5 fL (9.1-12.4); NEUTROPHILS ABSOLUTE AUTO 5.66 K/mm3 (1.96-9.15); NEUTROPHILS PERCENT AUTO 73 % (41-73); Platelet Count 153 K/mm3 (150-400); RDW Coefficient Variation 12.8 % (11.7-14.2); Red Blood Cell Count 3.31 M/mm3 (4.30-5.90); White Blood Cell Count 7.79 K/mm3 (4.00-11.30)
[2022-05-11 04:55] LABS: Anion Gap 7 mmol/L (6-16); Blood Urea Nitrogen 62 mg/dL (8-24); Bun/Creatinine Ratio 20.7 (12.0-20.0); CO2, Blood 27 mmol/L (21-32); Chloride, Blood 105 mmol/L (98-108); Glomerular Filtration Rate 20 (60-); Glucose, Blood 142 mg/dL (70-99); Magnesium, Blood 2.3 mg/dL (1.6-2.4); Phosphorus, Blood 3.9 mg/dL (2.5-4.9); Potassium, Blood 4.1 mmol/L (3.5-5.5); Sodium, Blood 139 mmol/L (136-145); Vancomycin, Random 16.8 ug/mL
--- NOTE | 2022-05-11 06:14 | NUR ---
PT RESTS QUIETLY THROUGHOUT SHIFT, DENIES NEEDS THROUGHOUT NOC, TRANSFERS TO BSC EASILY WITH SBA AND TOLERATES WELL, HS DOCUSATE HELD FOR DIARRHEA. VITALS REMAIN STABLE THROUGHOUT NOC, NO ACUTE CHANGES NOTED.
--- NOTE | 2022-05-11 17:05 | NUR ---
SHIFT SUMMARY PT REMAINS ALERT AND ORIENTED. VS STABLE. O2 SATS REMAIN ABOVE 90% ON 2L NC. PT DENIES ANY PAIN. PT VERY UNSTEADY ON HIS FEET THIS AFTERNOON AND REQUIRED 2 PERSON ASSIT WITH GB AND FWW TO GET TO THE BSC. CALLED AND UPDATED THIS AFTERNOON. NS INFUSING PER ORDERS. WILL CONTINUE TO MONITOR AND REPORT TO ONCOMING RN
[2022-05-12 04:00] LABS: Hematocrit 33.9 % (37.0-53.0); Hemoglobin 10.3 g/dL (13.5-17.5); Mean Corpuscular HGB 32.7 pg (26.0-34.0); Mean Corpuscular HGB Conc 30.4 g/dL (31.5-36.5); Mean Corpuscular Volume 108 fL (80-100); Mean Platelet Volume 10.4 fL (9.1-12.4); Platelet Count 159 K/mm3 (150-400); RDW Coefficient Variation 12.6 % (11.7-14.2); RDW Standard Deviation 50.3 fL (35.1-46.3); Red Blood Cell Count 3.15 M/mm3 (4.30-5.90); White Blood Cell Count 8.04 K/mm3 (4.00-11.30)
[2022-05-12 04:21] LABS: Albumin, Blood 2.4 g/dL (3.4-5.0); Anion Gap 5 mmol/L (6-16); Blood Urea Nitrogen 59 mg/dL (8-24); Bun/Creatinine Ratio 21.9 (12.0-20.0); CO2, Blood 28 mmol/L (21-32); Calcium, Blood 8.3 mg/dL (8.5-10.1); Chloride, Blood 106 mmol/L (98-108); Creatinine, Blood 2.69 mg/dL (0.60-1.20); Glomerular Filtration Rate 23 (60-); Glucose, Blood 159 mg/dL (70-99); Phosphorus, Blood 3.8 mg/dL (2.5-4.9); Potassium, Blood 4.3 mmol/L (3.5-5.5); Sodium, Blood 139 mmol/L (136-145); Vancomycin, Random 22.7 ug/mL
--- NOTE | 2022-05-12 05:36 | NUR ---
SHIFT SUMMARY NO ACUTE CHANES THIS SHIFT. VSS. AXO. NO TELE. LNC, SPO2 >94%. PT TO BSC X2 THIS SHIFT WITHOUT EVENT. PG PATENT AND DRAWS BLOOD WELL. BLOOD CULTURES X2 DRAWN THIS SHIFT. PT BEING REPOSITIONED BY STAFF T/O NIGHT. AND OTHERWISE, PT HAS BEEN RESTING COMFORTABLY.
[2022-05-12 13:17] LABS: Eosinophils-Raw #,Urine 0
--- NOTE | 2022-05-12 17:59 | NUR ---
SHIFT SUMMARY PT IS A/Ox4 IS PLEASANT AND COOPERATIVE WITH STAFF. NO ACUTE CHANGES THROUGHOUT THE DAY. PT MAINTAINS SP02 >94 ON 2-3L NC, BUT DESATURATES WHEN EATING. PT IS A 1-2 ASSIST TO THE BSC AND HAS SOME SMALL BOUTS OF INCONT. POSSIBLE DC 05/12/22 IF PT REMAINS STABLE. VSS NADN
--- NOTE | 2022-05-13 04:21 | NUR ---
SHIFT SUMMARY NO ACUTE CHANGES THIS SHIFT. PT ALERT, SUPER PLEASANT. SP02>90% ON 2L NC. SOB WHEN LYING FLAT TO BOOST IN BED, BUT RECOVERED QUICKLY WHEN SAT UP. MEDICAL FLOOR, NO TELE. USED URINAL AT BEDSIDE MULTIPLE TIMES. UP TO BSC 1 PERSON ASSIST W/ FWW AND GB. REPOSITIONED IN BED Q2H, FEET ELEVATED ON PILLOWS. SLEPT MOST OF NIGHT. DENIED PAIN. CALL LIGHT IN REACH.
[2022-05-13 04:49] LABS: Vancomycin, Random 17.1 ug/mL
[2022-05-13 08:38] LABS: Albumin, Blood 2.5 g/dL (3.4-5.0); Anion Gap 4 mmol/L (6-16); Blood Urea Nitrogen 58 mg/dL (8-24); Bun/Creatinine Ratio 25.2 (12.0-20.0); CO2, Blood 28 mmol/L (21-32); Calcium, Blood 8.5 mg/dL (8.5-10.1); Chloride, Blood 107 mmol/L (98-108); Glomerular Filtration Rate 28 (60-); Glucose, Blood 180 mg/dL (70-99); Potassium, Blood 4.1 mmol/L (3.5-5.5); Sodium, Blood 139 mmol/L (136-145)
[2022-05-13] MEDS ORDERED: VISBIOME 112.51 EACH PO (12:43)
[2022-05-13] MEDS ORDERED: Acetaminophen325 M1 PO (12:43)
[2022-05-13] MEDS ORDERED: LEVOFLOXACIN750 MG PO (12:45)
--- NOTE | 2022-05-13 13:42 | NUR ---
PT'S AT BEDSIDE, DISCUSSED PT'S DISCHARGE INCLUDING CONCERNS ABOUT MOBILITY AT HOME. PT STATES HE REFUSES TO BE DISCHARGED TO A SNF. PT'S VERBALIZES UNDERSTANDING THAT PT IS REQUIRING MORE ASSISTANCE THAN HE WAS REQUIRING PRIOR TO HIS HOSPITALIZATION. PT WILL BE DISCHARGED WITH HOME HEALTH AND HOME O2. PRESCRIPTIONS CALLED TO PT'S PHARMACY OF CHOICE. AWAITING O2 DELIVERY PRIOR TO DISCHARGE HOME.
--- NOTE | 2022-05-13 15:14 | NUR ---
PT DISCHARGED HOME VIA WHEELCHAIR WITH HIS . ALL DISCHARGE TEACHING REVIEWED WITH PT AND INCLUDING MEDICATION LIST, FOLLOW UP APPOINTMENTS AND DISCHARGE TEACHING. [facility] DELIVERED HOME 02 AND PROVIDED TEACHING ON USE. PT AND VERBALIZE UNDERSTANDING OF DISCHARGE INSTRUCTIONS AND HAVE NO QUESTIONS OR CONCERNS AT THIS TIME. NO OTHER DISCHARGE NEEDS IDENTIFIED.
== END 2022-05-13 15:23 | disposition home health service (06) | DRG 871 ==
LOC: ER 00:07 → PCU 05:43 → ENPENDDIS 05-13 11:22 → PCU 05-13 15:23
PROVIDERS: Family Medicine; Internal Medicine; Internal Medicine Nephrology; Student in an Organized Health Care Education/Training Program; ADMIT Internal Medicine
DX: A41.1 Sepsis due to other specified staphylococcus (principal); J18.9 Pneumonia, unspecified organism; J96.01 Acute respiratory failure with hypoxia; N17.9 Acute kidney failure, unspecified; I48.20 Chronic atrial fibrillation, unspecified; Z68.41 Body mass index [BMI] 40.0-44.9, adult; N18.30 Chronic kidney disease, stage 3 unspecified; E11.22 Type 2 diabetes mellitus with diabetic chronic kidney disease; I25.10 Atherosclerotic heart disease of native coronary artery without angina pectoris; I12.9 Hypertensive chronic kidney disease with stage 1 through stage 4 chronic kidney disease, or unspecified chronic kidney disease; N40.0 Benign prostatic hyperplasia without lower urinary tract symptoms; E87.6 Hypokalemia; E87.5 Hyperkalemia; E66.9 Obesity, unspecified; I35.2 Nonrheumatic aortic (valve) stenosis with insufficiency; Z20.822 Contact with and (suspected) exposure to COVID-19; Z88.8 Allergy status to other drugs, medicaments and biological substances; Z91.038 Other insect allergy status; Z79.899 Other long term (current) drug therapy; Z79.02 Long term (current) use of antithrombotics/antiplatelets; Z79.51 Long term (current) use of inhaled steroids; Z79.01 Long term (current) use of anticoagulants; Z86.718 Personal history of other venous thrombosis and embolism; Z86.711 Personal history of pulmonary embolism; Z85.05 Personal history of malignant neoplasm of liver; Z95.5 Presence of coronary angioplasty implant and graft; Z98.890 Other specified postprocedural states; Z87.891 Personal history of nicotine dependence; I25.2 Old myocardial infarction
CPT/HCPCS: 36415; 71045; 76770; 80048; 80053; 80069; 80202; 81001; 82306; 82570; 82947; 83036; 83605; 83735; 83970; 84100; 84132; 84145; 84156; 84484; 85025; 85027; 85379; 87040; 87077; 87086; 87186; 87205; 93005; 93010; 93308; 93321; 94760; 94761; 94762; 96374; 96375; 96376; 97110; 97161; 97166; 97530; 97535; 99285-25; A9270; C1751; J0456; J0696; J1940; J3370; J7030; J7050; J7060; U0004

== ENCOUNTER 2022-07-30 09:22 | Emergency (ER) | payer OTHER ==
[~2022-07-30] VITALS: Ht 177.8 cm; Wt 99.8 kg
[~2022-07-30 09:22] MED LIST changes: +Acetaminophen325 M1 PO; +LEVOFLOXACIN750 MG PO
--- NOTE | 2022-07-30 10:22 | NUR ---
Code Response/EOL Care. Nurse Auditor In Charge called for Spiritual care to meet with family. ED staff admistering chest compressions. Spouse and Pts. daughter arrived, and are escorted into ED26 to observe staff and Pt. After several rounds of chest compressions the Spouse verbalized the staff to stop. Pt. passed at some point prior to 10:00. EOL blessing for the Pt. and prayer for the family is given. There will not be any other family coming. [facility] in [place] is the families choice for care. Pt's ring and watch is given to the spouse. This sod stripper walked spouse and daughter out of the ED. Both vrbalized gratitude for the efforts of the ED staff and spiritual care that was provided.
== END 2022-07-30 10:58 | disposition home or self-care (01) ==
LOC: ER 09:22
DX: I46.9 Cardiac arrest, cause unspecified (principal); I48.91 Unspecified atrial fibrillation; E11.9 Type 2 diabetes mellitus without complications; I25.10 Atherosclerotic heart disease of native coronary artery without angina pectoris; I12.9 Hypertensive chronic kidney disease with stage 1 through stage 4 chronic kidney disease, or unspecified chronic kidney disease; N18.30 Chronic kidney disease, stage 3 unspecified; Z91.030 Bee allergy status; Z88.8 Allergy status to other drugs, medicaments and biological substances; Z79.899 Other long term (current) drug therapy
CPT/HCPCS: 36415; 71045; 93005; 93010; 94002; J1940; J3475; J7060